=== PATIENT | female | born 1970 | race African-American/Black ===

== ENCOUNTER 2016-08-28 09:11 | Emergency (ER) | payer MEDICARE ==
[~2016-08-28 09:11] MED LIST: ADVAIR250 INH; AT25 PO; COMBIVIR PO; EFFEXOR XR150 MG PO; KLONO5 PO; LORT7 PO; LOTREL1 CA2 PO; METANX PO; METHOC500B PO; METHOC750B PO; MULTIPLE VIT PO; NORCO1 TA2 PO; PREV30 PO; PROVHFA INH; SINGULAIR1 PO; VICODINTAB PO; VIRAMUNE PO; VITAMIN D1000 UNI1 PO; VIVELLE SY0.1 MG/24 TOP
[2016-12-02] MEDS ORDERED: C5 PO (17:06)
== END 2016-08-28 11:19 | disposition home or self-care (01) ==
LOC: ER 09:11
DX: M25.551 Pain in right hip (principal); M54.9 Dorsalgia, unspecified; G89.29 Other chronic pain; Z88.5 Allergy status to narcotic agent; Z88.1 Allergy status to other antibiotic agents; Z88.2 Allergy status to sulfonamides; Z88.8 Allergy status to other drugs, medicaments and biological substances; Z79.899 Other long term (current) drug therapy
CPT/HCPCS: 73502-RT; 96372; 99283; J1170; J2405